=== PATIENT | male | born 1980 | race Caucasian/White ===

== ENCOUNTER 2021-05-12 18:15 | Emergency (ER) | payer OTHER ==
[2021-05-12] MEDS ORDERED: NAPROXEN500 MG PO (19:22)
== END 2021-05-12 19:40 | disposition home or self-care (01) ==
LOC: ER1 18:15
DX: M65.341 Trigger finger, right ring finger (principal); J44.9 Chronic obstructive pulmonary disease, unspecified
CPT/HCPCS: 99283

== ENCOUNTER 2021-06-03 21:57 | Emergency (ER) | payer OTHER ==
[~2021-06-03 21:57] MED LIST: NAPROXEN500 MG PO
[2021-06-03 23:00] LABS: HEMOGLOBIN 16.9 gm/dl (14.0-17.5); RED BLOOD COUNT 5.22 M/UL (4.20-5.50); WHITE BLOOD COUNT 9.1 K/UL (4.5-11.0)
[2021-06-04 00:20] LABS: BUN/CREATININE RATIO 20 (0-10)
== END 2021-06-04 01:37 | disposition home or self-care (01) ==
LOC: ER1 21:57
PROVIDERS: Student in an Organized Health Care Education/Training Program
DX: S60.222A Contusion of left hand, initial encounter (principal); S00.81XA Abrasion of other part of head, initial encounter; R74.8 Abnormal levels of other serum enzymes; I10 Essential (primary) hypertension; J44.9 Chronic obstructive pulmonary disease, unspecified; F17.210 Nicotine dependence, cigarettes, uncomplicated; V49.9XXA Car occupant (driver) (passenger) injured in unspecified traffic accident, initial encounter
CPT/HCPCS: 36415; 70450; 71045; 71260; 72125; 72128; 72131; 72170; 73130; 80053; 80307; 81001; 83690; 85025; 86850; 86900; 86901; 93005; 99284; G0480; Q9967

== ENCOUNTER 2021-06-12 08:07 | Emergency (ER) | payer OTHER ==
[2021-06-12 09:11] LABS: RED BLOOD COUNT 4.66 M/UL (4.20-5.50); WHITE BLOOD COUNT 9.8 K/UL (4.5-11.0)
[2021-06-12 09:32] LABS: BUN/CREATININE RATIO 19 (0-10)
[2021-06-12] MEDS ORDERED: HYDROCODON-ACE1 EAC4 PO (10:05)
== END 2021-06-12 10:45 | disposition home or self-care (01) ==
LOC: ER1 08:07
PROVIDERS: Emergency Medicine
DX: S22.41XA Multiple fractures of ribs, right side, initial encounter for closed fracture (principal); I10 Essential (primary) hypertension; J44.9 Chronic obstructive pulmonary disease, unspecified; F17.200 Nicotine dependence, unspecified, uncomplicated; R91.1 Solitary pulmonary nodule; V49.9XXA Car occupant (driver) (passenger) injured in unspecified traffic accident, initial encounter; Y92.410 Unspecified street and highway as the place of occurrence of the external cause
CPT/HCPCS: 71260; 80053; 82550; 82553; 83690; 83874; 84484; 85025; 93005; 96374; 96375; 99284; Q9967

== ENCOUNTER → 2021-07-06 | Outpatient (CLI) | payer OTHER ==
[~2021-07-06] MED LIST changes: +HYDROCODON-ACE1 EAC4 PO
[2021-07-06 18:00] LABS: HEMOGLOBIN 17.1 gm/dl (14.0-17.5); RED BLOOD COUNT 5.37 M/UL (4.20-5.50); WHITE BLOOD COUNT 10.3 K/UL (4.5-11.0)
[2021-07-06 18:23] LABS: BUN/CREATININE RATIO 14 (0-10)
[2021-07-08 08:13] LABS: HBSAG SCREEN Negative (Negative); HEP A AB, IGM Negative (Negative); HEP B CORE AB, IGM Negative (Negative); HEP C VIRUS AB <0.1 (0.0-0.9); VITAMIN D, 25-HYDROXY 28.4 ng/mL (30.0-100.0)
== END ==
LOC: LAB 16:54
PROVIDERS: Nurse Practitioner Family
DX: S29.9XXA Unspecified injury of thorax, initial encounter (principal); R07.81 Pleurodynia; Z13.220 Encounter for screening for lipoid disorders; Z13.0 Encounter for screening for diseases of the blood and blood-forming organs and certain disorders involving the immune mechanism; Z13.29 Encounter for screening for other suspected endocrine disorder; Z13.21 Encounter for screening for nutritional disorder; V89.2XXA Person injured in unspecified motor-vehicle accident, traffic, initial encounter; S22.43XD Multiple fractures of ribs, bilateral, subsequent encounter for fracture with routine healing
CPT/HCPCS: 36415; 71111; 80053; 80061; 80074; 82607; 84439; 84443; 85025